=== PATIENT | female | born 1980 | race Caucasian/White ===

== ENCOUNTER 2016-08-16 14:29 | Inpatient (IN) | payer OTHER ==
[2016-08-16] VITALS (8 sets, daily range): BP systolic 106–141; BP diastolic 60–88
[~2016-08-16] VITALS: Ht 165.1 cm; Wt 98.7 kg
--- NOTE | ~2016-08-16 | HC ---
[facility] [place] [address] CONSULTATION Name: AZALEAAKBAR Yumiko Room #: 244-P [facility] [place] .R.#: [id number] Admission: 08/16/16 Attend Phys: Pedro Koo Discharge: 08/17/16 Date of : 84 Report #: [id number] THIS REPORT FOR: //name// CC: ANISHA physician/PCP Pedro Koo HISTORY OF PRESENT ILLNESS: This is a 35-year-old female with a history of alcoholism and depression. She presented to the hospital with an attempt to overdose after getting intoxicated. I spoke with her and I spoke with her boyfriend, who they have been living together for some time, they have three children with each other, they both feel that the patient is doing much better now. She is not at a point that she is dangerous to herself. The patient says that she has a history of depression and anxiety, that she has been tried on several medications where she has not had response to Prozac, Lexapro, and Wellbutrin. She said Wellbutrin made her feel angry. She has chronic anxiety. She says that at this point, she has no thoughts of harming herself or others. She is clear-headed. She is calm. She is pleasant. She denies psychosis, delusions, or perceptual disturbances. She has no visible signs of withdrawal. Both the patient and her boyfriend feel that she is not drinking. She is not a danger to herself. They are watching her. He is going to remove alcohol from their home. She is committed to abstinence and after discussing this in a motivational therapy fashion, she is committed to lifelong abstinence. She wants to get help. She wants to get back to seeing some type of professionals for depression and anxiety. She has been getting treatment from her primary care physician, so she is more than willing to follow up with outpatient Psychiatry. FAMILY PSYCHIATRIC HISTORY: Father and mother both have depression. SOCIAL HISTORY: The patient has periods of long sobriety, which relapsed over the last week. She was sober for 3 months prior to this episode and she is at a point that she feels she can sustain abstinence at this point, so does the boyfriend. She has three children. Good support from her boyfriend, not in an abusive relationship. MENTAL STATUS EXAM: Alert and oriented x 4. No tremor, no diaphoresis, no headache. Thought process linear. Thought content, no suicidal or homicidal thoughts, delusions, or perceptual substances, clear-headed. Good insight and judgment. Normal affective range, ____. No delusions or perceptual disturbances. IMPRESSION: AXIS I: Major depressive disorder, recurrent, severe. AXIS II: Alcoholism. [facility] [address] [place] [address] CONSULTATION Name: AZALEAAKBAR A Room #: 244-P [facility] IN M.R.#: [id number] Admission: 08/16/16 Attend Phys: Pedro Koo Discharge: 08/17/16 Date of : 84 Report #: [id number] AXIS III: Deferred. AXIS IV: No active acute withdrawal. Laboratories reviewed as well as medications. AXIS V: Moderate. AXIS : Global Assessment of Functioning 50%. ASSESSMENT AND PLAN: At this point, the patient may be discharged home to an outpatient treatment plan. Both the patient and boyfriend discussed with me a safety plan, which the patient agreed to follow, which we discussed in the usual fashion. She also agrees to abstinence from alcohol and agrees to trial new medication of venlafaxine ER 75 mg daily and not resume other antidepressants. Thank you for the consultation. We will follow the patient while she is here. It is my understanding that she is likely going to be discharged soon. She can follow up with outpatient treatment. I would go ahead and give her 2 doses of Librium today 25 mg now and 25 mg in 4 hours before discharge, then she would be ready to go. Thank you for the consultation. Any questions, give me a call. By: [id number] Severo Sims MD /bia
[~2016-08-16 14:29] MED LIST: CHLORDIAZEPOXID25 M1 PO; IBUPROFEN 800800 M1; MACROBID 100 M100 M1 PO; NOHOMEMEDICATIONS; NORCO 5-325 TA1 EACH PO; PHENERGAN 25 MG25 M1 PO; ZOFRAN ODT4 M1 PO; ZOFRAN ODT4 MG PO
[2016-08-16 15:10] LABS: URINE BILIRUBIN NEGATIVE (Negative); URINE BLOOD 2+ (Negative); URINE COLOR YELLOW; URINE GLUCOSE-RANDOM* NEGATIVE (Negative); URINE KETONES NEGATIVE (Negative); URINE LEUKOCYTES-REFLEX NEGATIVE (Negative); URINE PROTEIN (DIPSTICK) 3+ (Negative); URINE SPECIFIC GRAVITY 1.025 (1.003-1.035)
[2016-08-16 15:14] LABS: HEMATOCRIT 47.6 % (37.0-47.0); HEMOGLOBIN 16.4 gm/dL (12.0-15.0); MCH 32.3 pg (26.0-34.0); MCHC 34.5 g/dL (28.0-37.0); MCV 93.7 fL (80.0-100.0); RBC 5.08 mil/uL (4.20-5.00); RDW 12.5 % (10.5-14.5); WBC 10.1 thou/uL (4.0-11.0)
[2016-08-16 15:20] LABS: CASTS None Seen /LPF (None Seen); SQUAMOUS 4-10 Moderate /LPF (0-3)
[2016-08-16 15:21] LABS: AMP/METHAMP Negative (Negative); BARBITURATES Negative (Negative); BENZODIAZEPINES Negative (Negative); COCAINE Negative (Negative); CRYSTALS None Seen /LPF (None Seen); METHADONE Negative (Negative); OPIATES Negative (Negative); PCP Negative (Negative); THC Negative (Negative); URINE RBC 0-2 Rare /HPF (0-2); URINE WBC-REFLEX 6-15 Few /HPF (0-5)
[2016-08-16 15:23] LABS: ANION GAP 16 mmol/L (7-16); BUN 6 mg/dL (7-18); CALCIUM 8.8 mg/dL (8.5-10.1); CHLORIDE 103 mmol/L (98-107); CO2 23 mmol/L (21-32); CREATININE 0.6 mg/dL (0.6-1.0); GLUCOSE 99 mg/dL (74-106); POTASSIUM 3.5 mmol/L (3.5-5.1); SODIUM 142 mmol/L (136-145)
[2016-08-16 15:28] LABS: SALICYLATE 5.2 mg/dL (2.8-20.0)
[2016-08-16 15:39] LABS: ACETAMINOPHEN < 2 ug/mL (10-30)
[2016-08-17] VITALS (14 sets, daily range): BP systolic 113–129; BP diastolic 66–82
[2016-08-17 05:08] LABS: FREE T4 1.48 ng/dL (0.82-1.77)
[2016-08-17] MEDS ORDERED: CIPRO500 MG PO (09:01)
[2016-08-17] MEDS ORDERED: EFFEXOR XR75 MG PO (14:41)
[2016-08-21 06:08] LABS: TRICYCLIC (TCA) CONFIRMATION Negative ng/mL (Cutoff=100)
== END 2016-08-17 19:25 | disposition home or self-care (01) | DRG 885 ==
LOC: ER 14:29 → EROBS 16:27 → ICU 20:00
PROVIDERS: Emergency Medicine; Hospitalist
DX: F33.2 Major depressive disorder, recurrent severe without psychotic features (principal); N39.0 Urinary tract infection, site not specified; R45.851 Suicidal ideations; Z86.718 Personal history of other venous thrombosis and embolism; Z77.22 Contact with and (suspected) exposure to environmental tobacco smoke (acute) (chronic); F10.20 Alcohol dependence, uncomplicated; Y90.8 Blood alcohol level of 240 mg/100 ml or more; F41.9 Anxiety disorder, unspecified; Z87.891 Personal history of nicotine dependence; Z90.710 Acquired absence of both cervix and uterus; Z86.59 Personal history of other mental and behavioral disorders
CPT/HCPCS: 10196

== ENCOUNTER 2017-08-09 10:36 | Emergency (ER) | payer OTHER ==
[~2017-08-09] VITALS: Ht 165.1 cm; Wt 81.7 kg
[~2017-08-09 10:36] MED LIST changes: +CIPRO500 MG PO; +EFFEXOR XR75 MG PO
[2017-08-09] MEDS ORDERED: FLAGYL 250 MG250 MG PO (11:05)
== END 2017-08-09 11:49 | disposition home or self-care (01) ==
LOC: ER 10:36
DX: T78.40XA Allergy, unspecified, initial encounter (principal); T36.0X5A Adverse effect of penicillins, initial encounter; Y92.9 Unspecified place or not applicable